=== PATIENT | male | born 1990 | race African-American/Black ===

== ENCOUNTER 2020-01-05 12:02 | Emergency (ER) | payer OTHER, SELFPAY ==
--- NOTE | ~2020-01-05 | CT_ITS ---
EXAMINATION: CT brain wo con DATE: 01/05/2020 12:59 INDICATION: Seizure. Fall. TECHNIQUE: Computed tomography (CT) of the head was performed without intravenous contrast. The mA wa s adjusted according to patient size. Iterative reconstruction technique was employed. Exam dose: 68 1.00 mGy-cm total exam DLP. COMPARISON: None FINDINGS: No intracranial mass lesion or hemorrhage or cerebrovascular accident. No midline shift or mass effect. Normal ventricular size. No subdural or epidural hematoma. There is complete opacification of the right maxillary sinus. There is patchy soft tissue thickening of the ethmoid air cells, right greater than left. Included paranasal sinuses and mastoid air cells a re otherwise unremarkable. No fracture or bone destruction of the cranial vault. IMPRESSION: No significant intracranial abnormality or skull fracture Right maxillary and bilateral ethmoid disease Reviewed, dictated and finalized at [facility] Reviewed, dictated and finalized at [facility].
--- NOTE | ~2020-01-05 | CT_ITS ---
EXAMINATION: CT cervical spine wo con DATE: 01/05/2020 12:56 INDICATION: Fall. TECHNIQUE: Computed tomography (CT) of the cervical spine was performed without intravenous contrast. Automated exposure control and iterative reconstruction technique were employed. Exam dose: 451.53 mGy-cm total exam DLP. COMPARISON: None FINDINGS: There is mild reversal of cervical curvature which may be due to muscle spasm and/or positi oning. C1 and C2 are normally aligned and the odontoid process is intact. No fracture or dislocation or lock ed facet or prevertebral soft tissue swelling. Cervical interspaces are preserved. IMPRESSION: Mild reversal cervical curvature; no fracture or dislocation Reviewed, dictated and finalized at [facility]. Reviewed, dictated and finalized at [facility].
[2020-01-05 12:00] VITALS: BP 116/64; PULSE 95; RESP 20; TEMP 36.7; O2SAT 100
[2020-01-05 12:38] LABS: Basophils Percent Auto 0.2 % (0.2-1.2); Eosinophils Percent Auto 0.3 % (0-4.4); Hematocrit 38.4 % (42.0-52.0); Hemoglobin 12.6 g/dL (14.0-18.0); Immature Granulocyte Absolute 0.03 K/mm3 (0.00-0.031); Immature Granulocyte Percent A 0.3 % (0-0.5); Lymphocytes Absolute Auto 1.06 K/mm3 (0.9-3.2); Lymphocytes Percent Auto 9.1 % (18.3-44.2); Mean Corpuscular HGB Conc 32.8 g/dl (32-36); Mean Corpuscular Volume 82.4 fl (80-100); Monocytes Absolute Auto 0.7 K/mm3 (0.1-0.6); Monocytes Percent Auto 5.7 % (2.6-8.5); Neutrophils Absolute Auto 9.9 K/mm3 (1.3-6.7); Neutrophils Percent Auto 84.4 % (45.5-73.1); Platelet Count Result 258 k/mm3 (150-375); Red Blood Count 4.66 M/mm3 (4.6-6.20); Red Cell Distribution Width 15.6 % (11.5-14.5); White Blood Count 11.7 K/mm3 (4.5-10.0)
[2020-01-05 12:50] LABS: Blood Urea Nitrogen 9 mg/dL (9-20); Calcium 8.8 mg/dL (8.4-10.2); Carbon Dioxide 18 mmol/L (22-30); Chloride 105 mmol/L (98-107); Estimated Glomerular Filt Rate > 60; Glucose 106 mg/dL (75-110); Potassium 4.1 mmol/L (3.4-5.0); Sodium 134 mmol/L (137-145)
[2020-01-05 13:00] VITALS: BP 108/50; PULSE 70; RESP 16; O2SAT 100
--- NOTE | 2020-01-05 13:10 | ED.SEIZURE ---
HPI - Seizure General Chief Complaint: Seizure Stated Complaint: SEIZURE Time Seen by Provider: 01/05/20 12:11 History of Present Illness HPI Narrative: Patient is a 29-year-old male who presents the ER after having a seizure. He is at work and has a known seizure history for which he takes carbamazepine. Patient had 3 witnessed seizures by bystanders. Patient altered for EMS but upon arriving here he is oriented x3. He reports he has been taking his carbamazepine once a day instead of twice a day trying to make the prescription last longer. He has been doing this for last 2 weeks. Denies any illicit substances. Has been having seizures since he was 1 years old. Seizure History: Yes Related Data Home Medications Medication Instructions Recorded Confirmed carbamazepine mg PO 01/05/20 Allergies Allergy/AdvReac Type Severity Reaction Status Date / Time No Known Allergies Allergy Unverified 12/12/11 08:58 Review of Systems Review of Systems: All systems reviewed & are unremarkable except as noted in HPI and below Constitutional: Constitutional: Denies chills, Denies fever(s) and Denies weakness Eyes: Eyes: Denies change in vision ENT: Denies nasal congestion and Denies sore throat Cardiovascular: Cardiovascular: Denies chest pain and Denies radiating jaw, neck or arm pain Gastrointestinal: Gastrointestinal: Denies abdominal pain, Denies nausea and Denies vomiting Musculoskeletal: Musculoskeletal: Denies arthralgias and Reports muscle cramps Neurologic: Comments: seizures PMFSH Past Medical History Medical History (Updated 01/05/20 @ 15:15 by Alvaro Neal MD) Epilepsy Surgical History Surgical History (Updated 01/05/20 @ 15:15 by Alvaro Neal MD) No pertinent past surgical history Social History Social History (Updated 01/05/20 @ 15:15 by Alvaro Neal MD) Smoking status: Never smoker Exam Narrative: Exam Narrative: GENERAL: Well-appearing, well-nourished, and in no acute distress. HEAD: Normocephalic, abrasions left forehead. EYES: PERRL and EOMI. ENT: Mucous membranes moist. NECK: Supple. C-spine immobilized. CHEST: Clear to auscultation. No respiratory distress. HEART: Regular rate and rhythm. Normal peripheral pulses. ABDOMEN: Soft, nontender, nondistended. EXTREMITIES: Normal range of motion. No edema. SKIN: Warm, dry, no rash. NEURO: No focal deficits. Alert and oriented x3. Course Course Emergency Course: I spoken to Dr. Bello and he recommend oral load of home dose of carbamazepine. Patient admitted to the hospitalist service as while he was in [place] he had had an additional seizure which makes the seizure #4 today. Patient was postictal after that seizure as well. Patient is alert and oriented x3 and is been admitted patient does not wish to stay in the hospital. He will be going home to his mother's where she can watch him. He reports he will likely go to [facility] where his neurologist is located should something happen. I will prescribe him a month's worth of his home carbamazepine so that he can properly dose himself. He has signed AMA paperwork. Vital Signs Vital signs: Vital Signs Temperature 98.1 F 01/05/20 12:00 Pulse Rate 95 01/05/20 12:00 Respiratory Rate 20 01/05/20 12:00 Blood Pressure 116/64 01/05/20 12:00 Pulse Oximetry 100 01/05/20 12:00 Temperature 98.1 F 01/05/20 12:00 Pulse Rate 70 01/05/20 14:30 Respiratory Rate 16 01/05/20 14:30 Blood Pressure 125/59 L 01/05/20 14:30 Pulse Oximetry 100 01/05/20 14:30 MDM - Seizure Lab Data Result diagrams: 01/05/20 12:30 01/05/20 12:30 Labs: Lab Results 01/05/20 01/05/20 Range/Units 12:30 12:30 WBC 11.7 H (4.5-10.0) K/mm3 RBC 4.66 (4.6-6.20) M/mm3 Hgb 12.6 L (14.0-18.0) g/dL Hct 38.4 L (42.0-52.0) % MCV 82.4 (80-100) fl MCH 27.0 (26-34) pg MCHC 32.8 (32-36) g/dl RDW 15.6 H
[2020-01-05] MEDS: CARBAMAZEPINE XR 200 MG TAB.ER.12H 400 MG PO (13:46)
[2020-01-05 14:30] VITALS: BP 125/59; PULSE 70; RESP 16; O2SAT 100
[2020-01-05 15:15] VITALS: BP 130/70; PULSE 80; RESP 16; O2SAT 98
== END 2020-01-05 15:15 | disposition left against medical advice (07) ==
LOC: ANHED 13:48 → ANH3MED 15:10
PROVIDERS: Emergency Provider Emergency Medicine
DX: G40.909 Epilepsy, unspecified, not intractable, without status epilepticus (principal)
CPT/HCPCS: 36415; 70450; 72125; 80048; 85025; 99284; A9270